=== PATIENT | male | born 1955 | race Caucasian/White ===

== ENCOUNTER 2025-02-22 11:21 | Outpatient (AMB) | payer OTHER, SELFPAY ==
--- NOTE | 2025-02-22 11:42 | MHC.PC.OV ---
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 Allergies No Known Allergies Allergy (Verified 02/22/25 11:42) Medication List - Last Reconciled 02/22/25 by Marina Lee PA-C aspirin 81 mg PO DAILY atorvastatin 20 mg PO BEDTIME finasteride 5 mg PO DAILY losartan 50 mg PO DAILY [magnesium PO] metformin 500 mg PO BID tadalafil 20 mg PO DAILY PRN tamsulosin 0.4 mg PO DAILY [vitamin d3 1000 1000 mg drops 1-2 drops a day] Tobacco use date assessed: 02/22/25 Fall risk assessment: 1 Fall in past year Last assessed Fall Risk: 02/22/25 Dental Screening Dental Screen Date: 02/22/25 Did you have a dental visit in the last 12 months?: Yes Did you have a dental problem in the last 6 months where you did not have access to dental care?: No Was dental information given to patient?: Patient has dentist HPI [employer]W Diabetes, cholesterol/high blood pressure HPI Details pt is a 70 y/o male who presents today to establish care. 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 He has a hx of t2dm, htn, hld, and BPH. CV: bp today is 154/68. He is on losartan 50 mg daily. His cholesterol is managed by atorvastatin 20 mg. Endo: Last a1c is 6.7 and today is 6.4. He is on metformin 500 mg bid. States that he is interested in a GLP 1. uro: followed by [facility]. Had bx in November 2024. Follows annually. Colonoscopy: cologuard neg 07/2024 Psa: UTD [facility] Surgical History (Updated 02/22/25 @ 12:09 by Sejal Vazquez CMA) H/O inguinal hernia repair History of medial meniscus repair of right knee History of carpal tunnel surgery Family History (Updated 02/22/25 @ 12:10 by Sejal Vazquez CMA) Mother HTN (hypertension) High blood cholesterol Type 2 diabetes mellitus Father HTN (hypertension) High blood cholesterol Other FH: mental illness Social History (Updated 02/22/25 @ 12:10 by Sejal Vazquez CMA) Housing: House Alcohol intake: former Comment: quit 35 years ago Patient Tobacco Use Status: Never used Tobacco e-Cigarette/Vaping Use: Never Used Second Hand Smoke Exposure: No service: No Current occupational status: employed and retired Cognitive needs: No Hearing needs: No Vision needs: Yes (glasses) Questionnaire PHQ-9 Over the last 2 weeks, how often have you been bothered by any of the following problems? 1. Little interest or pleasure in doing things: not at all 2. Feeling down, depressed, or hopeless: not at all 3. Trouble falling or staying asleep, or sleeping too much: not at all 4. Feeling tired or having little energy: not at all 5. Poor appetite or overeating: not at all 6. Feeling bad about yourself - or that you are a failure or have let yourself or your family down: not at all 7. Trouble concentrating on things, such as reading the newspaper or watching television: not at all 8. Moving or speaking so slowly that other people could have noticed. Or the opposite - being so fidgety or restless that you have been moving around a lot more than usual: not at all 9. Thoughts that you would be better off or of hurting yourself in some way: not at all Total score: 0 Depression Screening Interpretation: Negative Depression Screening Done: Yes 66505 - PHQ-9 Billing: Yes Source: Developed by Drs. Cornelius Carpio, Kathie Cooper, Thomas Rashid and colleagues, with an educational allie from [employer]. Thrive Questionnaire Date Thrive assessed: 02/15/25 I am a: Patient What is your living situation today?: I have a steady place to live Within the past 12 months, did the food you bought not last and you didn't have the money to get more?: Never true Within the past 12 months, did you worry whether your food would run out before you got money to buy more?: Never true Do you have trouble paying for medicines?: No Do you have trouble getting transportation to medical appointments?: No Do you have trouble paying your heating and electricity bill?: No Do you have trouble taking care of your child, family member or friend?: No Do you have trouble with day-to-day activities such as bathing, preparing meals, shopping, managing finances, etc.?: No Are you currently unemployed and looking for a job?: No Are you interested in more education?: No Please select the resources that you would like help with: None Currently or been in a relationship where the following occur: No concerns reported THRIVE Score: 0 AUDIT C Alcohol Use Questionnaire (AUDIT-C) 1. How often do you have a drink containing alcohol?: Never Total Score: 0 NEHAL-7 AMB Questionnaire NEHAL-7 Date NEHAL - 7 assessed: 03/08/25 Feeling nervous, anxious, or on edge: 0 = Not at all Not being able to stop or control worryin = Not at all Worrying too much about different things: 0 = Not at all Trouble relaxin = Not at all Being so restless that it is hard to sit still: 0 = Not at all Becoming easily annoyed or irritable: 0 = Not at all Feeling afraid as if something awful might happen: 0 = Not at all Total NEHAL-7 score (0-4 normal; 5-9 mild; 10-14 moderate; 15-21 severe): 0 Source: Developed by Drs. Cornelius Carpio, Kathie Cooper, Thomas Rashid and colleagues, with an educational allie from [employer]. NEHAL-7 Assessment Billing NEHAL-7 Assessment Tool: NEHAL-7 Assessment 84123 Physical exam (Primary Care) Vital Signs: Last Vital Signs Temp 97.8 F 02/22/25 11:50 Pulse 72 02/22/25 11:50 Resp 14 02/22/25 11:50 BP 148/78 H 02/22/25 11:55 Pulse Ox 95 02/22/25 11:50 Oxygen Delivery Method Room Air 02/22/25 11:50 BMI result Body Mass Index 34.8 Tobacco/Smoking Status: Tobacco use Status Tobacco use date assessed 02/22/25 02/22/25 11:57 Patient Tobacco Use Status Never used Tobacco 02/22/25 12:10 e-Cigarette/Vaping Use Never Used 02/22/25 12:10 PHQ-9: PHQ-9 Score PHQ-9: Total score 0 02/22/25 12:10 Depression Screening Interpretation: Negative Thrive Assessment: Date of Thrive Assessment Date Thrive assessed 02/15/25 02/22/25 11:44 Currently or been in a relationship where the following occur: No concerns reported Const Orientation/consciousness: patient oriented x3 HENMT Ears: hearing grossly normal bilaterally Neck Thyroid: Thyroid normal Lymphatic: no lymphadenopathy noted Resp Auscultation: clear to auscultation bilaterally Cardio Rate: regular rate Rhythm: regular rhythm Heart sounds: S1 normal heart sound present and S2 normal heart sound present GI Inspection: Yes normal to inspection Palpation (GI): Soft to palpation and Other GI palpation findings present (nontender, no cva tenderness) Auscultation: normoactive bowel sounds Rectal Exam - Male: Yes deferred Skin General skin exam: no rashes or lesions noted Neuro General: patient oriented x3, gait normal and no focal motor deficits Results AMB Hemoglobin A1c AMB Hemoglobin A1c 6.4 % Last Edit by Sejal Vazquez CMA on 02/22/25 12:06 Results Reviewed Results Reviewed: Laboratory Last Values Hgb A1c (Clinic) 6.4 % (4.0-6.0) H 02/22/25 12:04 Coding Level of Care Code New Pt Level 4 (34476) Complex EM visit Add On G2211 Diagnoses Controlled type 2 diabetes mellitus E11.9 Dyslipidemia E78.5 HTN (hypertension) I10 Additional Codes NEHAL-7 Assessment Billing - NEHAL-7 Assessment Tool: NEHAL-7 Assessment 55114 ([id number]) PHQ-9 - 95343 - PHQ-9 Billing: Yes ([id number]) Assessment & Plan Assessment & Plan (1) Controlled type 2 diabetes mellitus: Code(s): E11.9 - Type 2 diabetes mellitus without complications Category: Medical Plan: We will try Trulicity. We discussed risks and benefits and adverse effects of this medication. Continue with the metformin. Three-month follow up. Sooner if needed. (2) Dyslipidemia: Code(s): E78.5 - Hyperlipidemia, unspecified Category: Medical Plan: Refilled atorvastatin. Lipids and LFTs ordered. (3) HTN (hypertension): Code(s): I10 - Essential (primary) hypertension Category: Medical Plan: Elevated today above goal. Repeat blood pressure 148/78. Normally normal. He will check this at home. Orders: Orders Complete Blood Count Auto Diff 02/22/25 E11.9 - Type 2 diabetes mellitus without complications, E78.5 - Hyperlipidemia, unspecified, G89.29 - Other chronic pain, I10 - Essential (primary) hypertension, M25.561 - Pain in right knee, N40.0 - Benign prostatic hyperplasia without lower urinary tract symptoms Lipid Panel 02/22/25 E11.9 - Type 2 diabetes mellitus without complications, E78.5 - Hyperlipidemia, unspecified, G89.29 - Other chronic pain, I10 - Essential (primary) hypertension, M25.561 - Pain in right knee, N40.0 - Benign prostatic hyperplasia without lower urinary tract symptoms Microalbumin, Random (w Creat) 02/22/25 E11.9 - Type 2 diabetes mellitus without complications, E78.5 - Hyperlipidemia, unspecified, G89.29 - Other chronic pain, I10 - Essential (primary) hypertension, M25.561 - Pain in right knee, N40.0 - Benign prostatic hyperplasia without lower urinary tract symptoms AMB Hemoglobin A1c 02/22/25 E11.9 - Type 2 diabetes mellitus without complications Comprehensive [place]. Panel Fast 02/22/25 E11.9 - Type 2 diabetes mellitus without complications, E78.5 - Hyperlipidemia, unspecified, G89.29 - Other chronic pain, I10 - Essential (primary) hypertension, M25.561 - Pain in right knee, N40.0 - Benign prostatic hyperplasia without lower urinary tract symptoms TSH reflex Free T4 02/22/25 E11.9 - Type 2 diabetes mellitus without complications, E78.5 - Hyperlipidemia, unspecified, G89.29 - Other chronic pain, I10 - Essential (primary) hypertension, M25.561 - Pain in right knee, N40.0 - Benign prostatic hyperplasia without lower urinary tract symptoms Medications: New atorvastatin 20 mg PO BEDTIME 90 tabs 3RF dulaglutide (Trulicity) 0.75 mg (0.5 mL) subcut QWEEK 2 mL 4RF losartan 50 mg PO DAILY 90 tabs 3RF metformin 500 mg PO BID 180 tabs 3RF
[2025-02-22 11:50] VITALS: BP 154/68; PULSE 72; RESP 14; TEMP 36.6; O2SAT 95; BMI 34.8
[2025-02-22 11:55] VITALS: BP 148/78
--- OUTSIDE RECORDS SUMMARY | 2025-02-22 12:43 | XMS_ITS | Encounter Summary ---
Author Organization [facility] Address [address] [place] [address] Care Team Providers Care High School Director Name Role Phone Physician, No Pcp Primary Care Provider Unavaila ble Encounter Details Date Type Department Care Team (Late st Contact Info) Description 11/08/2024 Lab Requisition [facility] [address] [facility] [place] [address] Javed Johnson MD [address] [place] [address] Elevated prostate specific antigen (PSA) Social History Tobacco Use Types Packs/Day Years Used Date Smoking Tobacco: Never Assessed Sex and Gender Information Value Date Recorded Sex Assigned at Not on file Legal Sex Male 3:26 PM EDT Gender Identity Not on file Sexual Orientation Not on file documented as of this encounter Plan of Treatment Not on file documented as of this encounter Procedures Procedure Name Priority Date/Time Associated Diagnosis Comments AP OUTSIDE CONSULT Routine 11/08/2024 Elevated prostate specific antigen (PSA) documented in this encounter Results * Anatomic pathology outside consult (11/08/2024) Final Diagnosis A. Prostate, Left Mid [place] Biopsy: -BENIGN PROSTATE TISSUE B. Prostate, Left Lat [place] Biopsy: -BENIGN PROSTATE TISSUE C. Prostate, Left Mid Mid Biopsy: -BENIGN PROSTATE TISSUE D. Prostate, Left Lat Mid Biopsy: -BENIGN PROSTATE TISSUE E. Prostate, Left Mid Base Biopsy: -BENIGN PROSTATE TISSUE F. Prostate, Left Lat Base Biopsy: -BENIGN PROSTATE TISSUE G. Prostate, Right Mid [place] Biopsy: -BENIGN PROSTATE TISSUE H. Prostate, Right Lat [place] Biopsy: -BENIGN PROSTATE TISSUE I. Prostate, Right Mid Mid Biopsy: -BENIGN PROSTATE TISSUE J. Prostate, Right Lat Mid Biopsy: -BENIGN PROSTATE TISSUE K. Prostate, Right Mid Base Biopsy: -BENIGN PROSTATE TISSUE L. Prostate, Right Lat Base Biopsy: -BENIGN PROSTATE TISSUE M. Prostate, Right Transition Zone Lesion: -BENIGN PROSTATE TISSUE 11/14/2024 5:01 PM EDT [facility] Clinical Information Elevated PSA Last PSA total = 7.0 (09/08/24) [id number] 11/14/2024 5:01 PM EDT [facility] Gross Description A. Prostate, Left Mid [place] Biopsy: Received, properly labeled, are two H and E stained slides and two unstained slides. B. Prostate, Left Lat [place] Biopsy: Received, properly labeled, are two H and E stained slides and two unstained slides. C. Prostate, Left Mid Mid Biopsy: Received, properly labeled, are two H and E stained slides and two unstained slides. D. Prostate, Left Lat Mid Biopsy: Received, properly labeled, are two H and E stained slides and two unstained slides. E. Prostate, Left Mid Base Biopsy: Received, properly labeled, are two H and E stained slides and two unstained slides. F. Prostate, Left Lat Base Biopsy: Received, properly labeled, are two H and E stained slides and two unstained slides. G. Prostate, Right Mid [place] Biopsy: Received, properly labeled, are two H and E stained slides and two unstained slides. H. Prostate, Right Lat [place] Biopsy: Received, properly labeled, are two H and E stained slides and two unstained slides. I. Prostate, Right Mid Mid Biopsy: Received, properly labeled, are two H and E stained slides and two unstained slides. J. Prostate, Right Lat Mid Biopsy: Received, properly labeled, are two H and E stained slides and two unstained slides. K. Prostate, Right Mid Base Biopsy: Received, properly labeled, are two H and E stained slides and two unstained slides. L. Prostate, Right Lat Base Biopsy: Received, properly labeled, are two H and E stained slides and two unstained slides. M. Prostate, Right Transition Zone Lesion: Received, properly labeled, are two H and E stained slides and two unstained slides. /al 11/14/2024 5:01 PM EDT [facility] Disclaimer Unless otherwise specified, all tissue is 10% NB formalin fixed and paraffin embedded. Technical pathology services provided by [facility] [address] [place] [address] (CLIA #[id number]/S gracy Haile MD, Business Operations Specialist) 11/14/2024 5:01 PM EDT [facility] Tissue Prostate / Unknown 11/08/20242024 3:35 PM EDT Tissue specimen (specimen) Prostate / Unknown 11/08/2024 11/08/2024 3: 35 PM EDT Tissue specimen (specimen) Prostate / Unknown 11/08/2024 11/08/2024 3: 35 PM EDT Tissue specimen (specimen) Prostate / Unknown 11/08/2024 11/08/2024 3: 35 PM EDT Tissue specimen (specimen) Prostate / Unknown 11/08/2024 11/08/2024 3: 35 PM EDT Tissue specimen (specimen) Prostate / Unknown 11/08/2024 11/08/2024 3: 35 PM EDT Tissue specimen (specimen) Prostate / Unknown 11/08/2024 11/08/2024 3: 35 PM EDT Tissue specimen (specimen) Prostate / Unknown 11/08/2024 11/08/2024 3: 35 PM EDT Tissue specimen (specimen) Prostate / Unknown 11/08/2024 11/08/2024 3: 35 PM EDT Tissue specimen (specimen) Prostate / Unknown 11/08/2024 11/08/2024 3: 35 PM EDT Tissue specimen (specimen) Prostate / Unknown 11/08/2024 11/08/2024 3: 35 PM EDT Tissue specimen (specimen) Prostate / Unknown 11/08/2024 11/08/2024 3: 35 PM EDT Tissue specimen (specimen) Prostate / Unknown 11/08/2024 11/08/2024 3: 35 PM EDT Javed Johnson MD LAB PATHOLOGY ORDERABLES Final Result [facility] [address] [place] [address], documented in this encounter Visit Diagnoses Diagnosis Elevated prostate specific antigen (PSA) documented in this encounter Care Teams High School Director Relationship Specialty Start Date End Date Physician, No Pcp PCP - General 11/08/24 documented as of this encounter
== END 2025-02-22 12:24 | disposition home or self-care (01) ==
LOC: HO.HMCFM 11:22
PROVIDERS: PCP Physician Assistant; Visit Provider Physician Assistant
DX: E11.9 Type 2 diabetes mellitus without complications (principal); E78.5 Hyperlipidemia, unspecified; I10 Essential (primary) hypertension

== ENCOUNTER → 2025-02-22 11:21 | Outpatient (BNVA) | payer OTHER, SELFPAY | PROVIDERS: PCP Physician Assistant; Visit Provider Physician Assistant | DX: E11.9 Type 2 diabetes mellitus without complications (principal); I10 Essential (primary) hypertension; E78.5 Hyperlipidemia, unspecified; N40.0 Benign prostatic hyperplasia without lower urinary tract symptoms; M25.561 Pain in right knee | CPT/HCPCS: 83036; 96127 ==

== ENCOUNTER 2025-06-15 10:03 | Outpatient (REF) | payer OTHER, SELFPAY ==
[2025-06-15 14:56] LABS: MANUAL DIFF FLAG NO
[2025-06-15 15:05] LABS: Hematocrit 46.0 % (42.0-52.0); Hemoglobin 15.0 g/dl (14.0-18.0); Imm Gran Abs Auto 0.02 X10*3/uL (0.00-0.03); Imm Gran Pct Auto 0.3 % (0.0-0.4); Lymphocytes Absolute Auto 1.9 X10*3/uL (1.2-4.9); Mean Corpuscular HGB Conc 32.6 g/dl (31.0-36.0); Mean Corpuscular Hemoglobin 29.6 pg (27.0-33.0); Mean Corpuscular Volume 90.9 fL (80.0-98.0); NRBC Abs Auto 0.000 X10*3/uL (0.0-0.012); NRBC Pct Auto 0.0 /100WBC (0.0-0.2); Platelet Count 333 X10*3/uL (160-400); Red Blood Count 5.06 X10*6/uL (4.60-5.80); White Blood Count 6.2 X10*3/uL (4.8-10.8)
[2025-06-15 15:17] LABS: Alanine Aminotransferase 61 U/L (0-40); Albumin Level 4.9 g/dL (3.5-5.0); Alkaline Phosphatase 79 U/L (39-117); Anion Gap 14 (12-20); Aspartate Amino Transferase 40 U/L (5-37); Blood Urea Nitrogen 29 mg/dL (9-16); Calcium 10.3 mg/dL (8.4-10.2); Carbon Dioxide 24 mmol/L (22-29); Chloride 105 mmol/L (96-108); Cholesterol 193 mg/dL (<200); Estimated Glomerular Filt Rate > 60; HDL Cholesterol 43 mg/dL (>40); Potassium 4.9 mmol/L (3.3-5.1); Sodium 138 mmol/L (135-145); Total Protein 7.8 g/dL (6.5-8.0); Triglycerides 168 mg/dL (<150)
[2025-06-15 15:48] LABS: Microalbum/Creatinine Ratio Ur 802.2 ug/mg cr (<30)
--- OUTSIDE RECORDS SUMMARY | 2025-06-15 17:21 | XMS_ITS | Clinical Summary ---
Author Organization LL [address] [place] [address] Address [address] [place] [address] Phone Care Team Providers Care Clay Preparation Supervisor Name Role Phone Physician, No Pcp Primary Care Provider Unavaila ble Social History Tobacco Use Types Packs/Day Years Used Date Smoking Tobacco: Never Assessed Sex and Gender Information Value Date Recorded Sex Assigned at Not on file Legal Sex Male 3:26 PM EDT Gender Identity Not on file Sexual Orientation Not on file Plan of Treatment Health Maintenance Due Date Last Done Comments Colorectal Cancer Screening: Colonoscopy 1955 DTaP,Tdap,and Td Vaccines (1 - Tdap) 02/17/1976 Pneumococcal Vaccine: 50+ Ye ars (1 of 1 - PCV) 2007 Zoster Vaccines (1 of 2) 2007 Depression Screening 07/06/2024 Abdominal Aortic Aneurysm (A AA) Screen 11/09/2024 Cholesterol Screening (Lipid Panel) 11/09/2024 Falls Risk Assessment 11/09/2024 Hepatitis C Screening 11/09/2024 Medicare Annual Wellness Visit 11/09/2024 Social Influencers of Health Screening 11/09/2024 COVID-19 Vaccine (1 - 2024-2 6 season) 2025 Influenza Vaccine (#1) 2025 RSV Immunization Adult Patie nts (1 - 1-dose 75+ series) 02/17/2032 HIB Vaccines Aged Out No longer eligi ble based on patient's age to complete this topic HPV Vaccines Aged Out No longer eligi ble based on patient's age to complete this topic Hepatitis A Vaccines Aged Out No long er eligible based on patient's age to complete this topic Hepatitis B Vaccines Aged Out No long er eligible based on patient's age to complete this topic IPV Vaccines Aged Out No longer eligi ble based on patient's age to complete this topic MMR Vaccines Aged Out No longer eligi ble based on patient's age to complete this topic Meningococcal ACWY Vaccine Aged Out N o longer eligible based on patient's age to complete this topic Meningococcal B Vaccine Aged Out No l onger eligible based on patient's age to complete this topic RSV Immunization Patients Un ladi 20 months Aged Out No longer eligible b ased on patient's age to complete this topic Varicella Vaccines Aged Out No longer eligible based on patient's age to complete this topic Insurance [employer]ARE Care Teams Clay Preparation Supervisor Relationship Specialty Start Date End Date Physician, No Pcp PCP - General 11/08/24
== END 2025-06-15 10:04 | disposition home or self-care (01) ==
LOC: HO.WFDLDS 10:03
PROVIDERS: PCP Physician Assistant; Visit Provider Physician Assistant
DX: N40.0 Benign prostatic hyperplasia without lower urinary tract symptoms (principal); G89.29 Other chronic pain; M25.561 Pain in right knee; E78.5 Hyperlipidemia, unspecified; E11.9 Type 2 diabetes mellitus without complications; I10 Essential (primary) hypertension; R94.31 Abnormal electrocardiogram [ECG] [EKG]
CPT/HCPCS: 36415; 80053; 80061; 82043; 82570; 83036; 84443; 85025; 93005

== ENCOUNTER 2025-06-15 10:03 | Outpatient (AMB) | payer OTHER, SELFPAY ==
[2025-06-15 10:09] VITALS: BP 148/84; PULSE 111; RESP 14; O2SAT 96; BMI 34.8
--- NOTE | 2025-06-15 10:09 | MHC.PC.OV ---
Vital Signs 06/15/25 10:09 06/15/25 10:16 Height 5 ft 4.57 in Weight 206 lb 2 oz BMI 34.8 BP 148/84 H 144/78 H Blood Pressure Location Lt brachial Lt brachial Position Sitting Sitting Respiration 14 Pulse 111 H Pulse Source Pulse Oximeter Pulse Oximetry (%) 96 Oxygen Delivery Method Room Air Intake Visit Reasons: 3-month follow-up for controlled Type 2 Diabetes. Intake Note: Diabetes follow up. Hasnt started Trulicity yet because of insurance deductible. Patient is thinking about starting after the 100 day supply since it will be more cost effective. Database Developer Required: No Allergies No Known Allergies Allergy (Verified 06/15/25 10:13) Medication List - Last Reconciled 06/15/25 by Marina Lee PA-C aspirin 81 mg PO DAILY atorvastatin 20 mg PO BEDTIME dulaglutide (Trulicity) 0.75 mg (0.5 mL) subcut QWEEK finasteride 5 mg PO DAILY losartan 50 mg PO DAILY [magnesium PO] metformin 500 mg PO BID tadalafil 20 mg PO DAILY PRN tamsulosin 0.4 mg PO DAILY [vitamin d3 1000 1000 mg drops 1-2 drops a day] Tobacco use date assessed: 06/15/25 Fall risk assessment: 2 + Falls in past year Last assessed Fall Risk: 06/15/25 Dental Screening Dental Screen Date: 02/22/25 HPI 3-month follow-up for controlled Type 2 Diabetes. HPI Details pt is a 70 y/o male who presents today for a follow up. He has a hx of t2dm, htn, hld, and BPH. CV: bp today is 144/78. He is tachycardic but again attributes this to anxiety of being in a doctor's office. He is on losartan 50 mg daily. His cholesterol is managed by atorvastatin 20 mg. He denies any chest pain, shortness on breath or palpitations. States that his blood pressure which was elevated because he is here in the office and gets anxious coming into doctor's offices. [place] and states that he is very physically active and has never had any chest pain or shortness on breath. Endo: His A1c today is 6.8. He is on metformin 500 mg bid. He states that he never picked up the Trulicity because of the high deductible. He states that he does want to start a GLP 1 in the new year. uro: followed by [facility]. Had bx in November 2024. Follows annually. Colonoscopy: cologuard neg 07/2024 Psa: UTD Just had a new granddaughter Lillie. PFSH Surgical History (Updated 02/22/25 @ 12:09 by Sejal Vazquez CMA) H/O inguinal hernia repair History of medial meniscus repair of right knee History of carpal tunnel surgery Family History (Updated 02/22/25 @ 12:10 by Sejal Vazquez CMA) Mother HTN (hypertension) High blood cholesterol Type 2 diabetes mellitus Father HTN (hypertension) High blood cholesterol Other FH: mental illness Social History (Updated 02/22/25 @ 12:10 by Sejal Vazquez CMA) Housing: House Alcohol intake: former Comment: quit 35 years ago Patient Tobacco Use Status: Never used Tobacco e-Cigarette/Vaping Use: Never Used Second Hand Smoke Exposure: No service: No Current occupational status: employed and retired Cognitive needs: No Hearing needs: No Vision needs: Yes (glasses) Questionnaire Thrive Questionnaire Date Thrive assessed: 02/15/25 I am a: Patient What is your living situation today?: I have a steady place to live Within the past 12 months, did the food you bought not last and you didn't have the money to get more?: Never true Within the past 12 months, did you worry whether your food would run out before you got money to buy more?: Never true Do you have trouble paying for medicines?: No Do you have trouble getting transportation to medical appointments?: No Do you have trouble paying your heating and electricity bill?: No Do you have trouble taking care of your child, family member or friend?: No Do you have trouble with day-to-day activities such as bathing, preparing meals, shopping, managing finances, etc.?: No Are you currently unemployed and looking for a job?: No Are you interested in more education?: No Please select the resources that you would like help with: None Currently or been in a relationship where the following occur: No concerns reported THRIVE Score: 0 NEHAL-7 AMB Questionnaire NEHAL-7 Date NEHAL - 7 assessed: 03/08/25 Source: Developed by Drs. Cornelius Carpio, Kathie Cooper, Thomas Rashid and colleagues, with an educational allie from [employer]. Physical exam (Primary Care) Vital Signs: Last Vital Signs Pulse 111 H 06/15/25 10:09 Resp 14 06/15/25 10:09 BP 144/78 H 06/15/25 10:16 Pulse Ox 96 06/15/25 10:09 Oxygen Delivery Method Room Air 06/15/25 10:09 BMI result Body Mass Index 34.8 Tobacco/Smoking Status: Tobacco use Status Tobacco use date assessed 06/15/25 06/15/25 10:14 Patient Tobacco Use Status Never used Tobacco 06/15/25 10:14 e-Cigarette/Vaping Use Never Used 06/15/25 10:14 Thrive Assessment: Date of Thrive Assessment Date Thrive assessed 02/15/25 06/15/25 10:14 Currently or been in a relationship where the following occur: No concerns reported Const Orientation/consciousness: patient oriented x3 HENMT Ears: hearing grossly normal bilaterally Neck Thyroid: Thyroid normal Lymphatic: no lymphadenopathy noted Resp Auscultation: clear to auscultation bilaterally Cardio Rate: regular rate Rhythm: regular rhythm Heart sounds: S1 normal heart sound present and S2 normal heart sound present GI Inspection: Yes normal to inspection Palpation (GI): Soft to palpation and Other GI palpation findings present (nontender, no cva tenderness) Auscultation: normoactive bowel sounds Rectal Exam - Male: Yes deferred Skin General skin exam: no rashes or lesions noted Neuro General: patient oriented x3, gait normal and no focal motor deficits Office Procedures EKG Details: His EKG today in the office is sinus tachycardia at a rate of 105 beats per minute with nonspecific STT wave abnormalities. He does have some T-wave inversions in lead 3 and AVF. No prior study to compare. [id number], Complete Results AMB Hemoglobin A1c AMB Hemoglobin A1c 6.8 % Last Edit by Sejal Vazquez CMA on 06/15/25 10:24 Results Reviewed Results Reviewed: Laboratory Last Values Hgb A1c (Clinic) 6.8 % (4.0-6.0) H 06/15/25 10:19 Coding Level of Care Code Est Pt Level 4 (19348) Add On Problem Visit Only Diagnoses Skin lesion of back L98.9 HTN (hypertension) I10 Abnormal EKG R94.31 CPT Codes EKG - CPT: 02361-[id number], Complete ([id number]) Assessment & Plan Assessment & Plan (1) Skin lesion of back: Code(s): L98.9 - Disorder of the skin and subcutaneous tissue, unspecified Category: Medical Plan: Referral to [facility] (2) HTN (hypertension): Code(s): I10 - Essential (primary) hypertension Category: Medical Plan: Elevated above goal but reports BP is at home were WNL. We will continue current management (3) Abnormal EKG: Code(s): R94.31 - Abnormal electrocardiogram [ECG] [EKG] Category: Medical Plan: Echo ordered today. We will follow up pending test results. Orders: Orders CA echo transthoracic complete 06/15/25 I10 - Essential (primary) hypertension, R00.0 - Tachycardia, unspecified, R94.31 - Abnormal electrocardiogram [ECG] [EKG] AMB Hemoglobin A1c 06/15/25 E11.9 - Type 2 diabetes mellitus without complications AMB EKG-In Office 06/15/25 E78.5 - Hyperlipidemia, unspecified, I10 - Essential (primary) hypertension, R00.0 - Tachycardia, unspecified, Z13.6 - Encounter for screening for cardiovascular disorders Referrals Dermatology Referral L98.9 - Disorder of the skin and subcutaneous tissue, unspecified, Z12.83 - Encounter for screening for malignant neoplasm of skin Medications: Refilled dulaglutide (Trulicity) 0.75 mg (0.5 mL) subcut QWEEK 6 mL 2RF
[2025-06-15 10:16] VITALS: BP 144/78
== END 2025-06-15 11:08 | disposition home or self-care (01) ==
LOC: HO.HMCFM 10:04
PROVIDERS: PCP Physician Assistant; Visit Provider Physician Assistant
DX: E11.9 Type 2 diabetes mellitus without complications (principal)